=== PATIENT | female | born 1955 | race Caucasian/White ===

== ENCOUNTER 2021-09-16 10:43 | Emergency (ER) | payer OTHER ==
[~2021-09-16] VITALS: Ht 162.6 cm; Wt 74.8 kg
[2021-09-16] MEDS ORDERED: GLUMETZA500 MG PO (10:58)
[2021-09-16] MEDS ORDERED: ATACAND4 MG PO (10:58)
[2021-09-16] MEDS ORDERED: LEVOTHYROXINE112 MC1 PO (10:59)
[2021-09-16] MEDS ORDERED: LIPITOR20 MG PO (10:59)
== END 2021-09-16 17:21 | disposition home or self-care (01) ==
LOC: ER 10:43
DX: K57.92 Diverticulitis of intestine, part unspecified, without perforation or abscess without bleeding (principal)